=== PATIENT | male | born 1960 | race Caucasian/White ===

== ENCOUNTER 2023-03-23 06:32 | Day surgery (SDC) | payer MEDICAID ==
[~2023-03-23] VITALS: Ht 162.6 cm; Wt 87.6 kg
[2023-03-23] VITALS (9 sets, daily range): BP systolic 111–131; BP diastolic 73–92; PULSE 47–57; RESP 13–18; TEMP 98.2; O2SAT 94–98
[2023-03-23] MEDS ORDERED: diphenhydrAMINE 25mg capsule PO PRN (06:50)
[2023-03-23] MEDS ORDERED: normal saline 1,000 ML IV SCH (06:50)
[2023-03-23 07:23] LABS: ALBUMIN 3.4 G/DL (3.4-5.0); ANION GAP 11 (8-16); BLOOD UREA NITROGEN 25 MG/DL (7-18); BUN/CREATININE RATIO 21.7 (10.0-20.0); CALCIUM 8.5 MG/DL (8.5-10.1); CHLORIDE 108 MMOL/L (99-107); CREATININE 1.15 MG/DL (0.60-1.10); GLUCOSE 116 MG/DL (70-104); SODIUM 142 MMOL/L (135-145); eCRCL 56 ML/MIN; eGFR 64 ML/MIN
[2023-03-23] MEDS ORDERED: CHOL100046 PO (07:24)
[2023-03-23] MEDS ORDERED: GLUT1POW PO (07:24)
[2023-03-23] MEDS ORDERED: ZINC50TA15 PO (07:24)
[2023-03-23] MEDS ORDERED: OMEG100037 PO (07:24)
[2023-03-23] MEDS ORDERED: VITA-268 PO (07:24)
[2023-03-23] MEDS ORDERED: MAGN250C PO (07:24)
[2023-03-23] MEDS ORDERED: ASCO-482 PO (07:24)
[2023-03-23] MEDS ORDERED: UBID300C3 PO (07:24)
[2023-03-23] MEDS ORDERED: ASPI-611 PO (07:24)
[2023-03-23] MEDS ORDERED: MULT-1085 PO (07:24)
[2023-03-23 07:25] LABS: INR 0.9 INR; PROTHROMBIN TIME 10.1 SECONDS (9.0-12.0)
[2023-03-23 07:39] LABS: LYMPHOCYTES # (AUTO) 2.5 X10'3 (1.1-4.8); MEAN CORPUSCULAR VOLUME 92.6 FL (78-98); MONOCYTES # (AUTO) 0.8 X10'3 (0-0.9); PLATELET COUNT 203 X10'3 (140-440)
[2023-03-23 07:41] LABS: BASOPHILS # (AUTO) 0.1 X10'3 (0-0.2); EOSINOPHILS # (AUTO) 0.7 X10'3 (0-0.9); EOSINOPHILS % (AUTO) 9.5 % (0-6); HEMATOCRIT 41.8 % (42.0-52.0); HEMOGLOBIN 14.5 g/dl (14.0-17.9); LYMPHOCYTES % (AUTO) 35.3 % (21-51); MEAN CORPUSCULAR HGB CONC 34.6 g/dL (33.0-36.5); MEAN PLATELET VOLUME 8.3 FL (7.4-10.4); MONOCYTES % (AUTO) 10.6 % (2-12); NEUTROPHILS % (AUTO) 42.6 % (42-75); RED BLOOD COUNT 4.52 X10'6 (4.70-6.10); RED CELL DISTRIBUTION WIDTH 13.1 % (11.5-14.5); WHITE BLOOD COUNT 7.1 X10'3 (4.5-11.0)
[2023-03-23] MEDS ORDERED: heparin 1,000unit/ml 10ml vial 10 ML ONE (08:53)
[2023-03-23] MEDS ORDERED: verapamil 2.5 mg/ml inj IV ONE (08:53)
[2023-03-23] MEDS ORDERED: LIDOcaine 1% (10mg/ml) 2ml vial ONE (08:53)
[2023-03-23] MEDS ORDERED: iohexol 350MG/ML 100ml bottle IV ONE (08:53)
[2023-03-23] MEDS ORDERED: midazolam 1 mg/ML 2ml injection ONE ×2 (08:53→09:33)
[2023-03-23] MEDS ORDERED: fentaNYL/PF 50MCG/1 ML 2ML syringe ONE (08:53)
[2023-03-23] MEDS ORDERED: iohexol 350 MG/ML 50ML vial IV ONE (08:53)
[2023-03-23] MEDS ORDERED: nitroGLYCERIN 500mcg/5mL D5W 0 ML IV ONE (08:54)
[2023-03-23] MEDS ORDERED: LIDOcaine 1% (10mg/ml)w/preservative inj. 20ml MDV ONE (08:57)
[2023-03-23] MEDS ORDERED: HYDROcodone/acetaminophen 5mg/325mg tablet PO PRN (10:35)
[2023-03-23] MEDS ORDERED: HYDROcodone/acetaminophen 10/325mg tab PO PRN (10:35)
[2023-03-23] MEDS ORDERED: normal saline 1000ml 1,000 ML IV SCH (10:35)
[2023-03-23] MEDS ORDERED: ondansetron/PF 4mg/2ml inj IV PRN (10:35)
[2023-03-23] MEDS ORDERED: proCHLORperazine 10 MG/2 ml inj IV PRN (10:35)
== END 2023-03-23 13:30 | disposition home or self-care (01) ==
LOC: SSTAY O 06:32
PROVIDERS: ATTEND Internal Medicine Cardiovascular Disease
DX: I35.0 Nonrheumatic aortic (valve) stenosis (principal); F12.90 Cannabis use, unspecified, uncomplicated; Z98.890 Other specified postprocedural states; Z79.899 Other long term (current) drug therapy; Z85.22 Personal history of malignant neoplasm of nasal cavities, middle ear, and accessory sinuses; Z87.891 Personal history of nicotine dependence; Z72.89 Other problems related to lifestyle
CPT/HCPCS: 36415; 80048; 83735; 85025; 85610; 93005; 93456; 99152; 99153; J1644; J2250; J3010; J3490; J7030; Q0163; Q9967; A6258; C1725; C1751; C1760; C1769; C1894

== ENCOUNTER 2023-04-17 09:52 | Outpatient (CLI) | payer MEDICAID ==
[~2023-04-17 09:52] MED LIST: ASCO-482 PO; ASPI-611 PO; CHOL100046 PO; GLUT1POW PO; MAGN250C PO; MULT-1085 PO; OMEG100037 PO; UBID300C3 PO; VITA-268 PO; ZINC50TA15 PO
[2023-04-17 10:37] LABS: BASOPHILS # (AUTO) 0.1 X10'3 (0-0.2); BASOPHILS % (AUTO) 1.2 % (0-1); EOSINOPHILS # (AUTO) 0.7 X10'3 (0-0.9); EOSINOPHILS % (AUTO) 8.2 % (0-6); HEMATOCRIT 46.2 % (42.0-52.0); HEMOGLOBIN 15.8 g/dl (14.0-17.9); LYMPHOCYTES # (AUTO) 2.1 X10'3 (1.1-4.8); LYMPHOCYTES % (AUTO) 26.2 % (21-51); MEAN CORPUSCULAR HEMOGLOBIN 31.6 PG (27.0-31.0); MEAN CORPUSCULAR HGB CONC 34.2 g/dL (33.0-36.5); MEAN CORPUSCULAR VOLUME 92.4 FL (78-98); MEAN PLATELET VOLUME 8.1 FL (7.4-10.4); MONOCYTES # (AUTO) 0.7 X10'3 (0-0.9); MONOCYTES % (AUTO) 8.4 % (2-12); NEUTROPHILS # (AUTO) 4.5 X10'3 (1.8-7.7); PLATELET COUNT 213 X10'3 (140-440); RED CELL DISTRIBUTION WIDTH 12.9 % (11.5-14.5); WHITE BLOOD COUNT 8.1 X10'3 (4.5-11.0)
[2023-04-17 10:56] LABS: ALANINE AMINOTRANSFERASE 43 U/L (12-78); ALBUMIN 3.8 G/DL (3.4-5.0); ALBUMIN/GLOBULIN RATIO 0.9 (1.1-1.5); ALKALINE PHOSPHATASE 106 IU/L (46-116); ANION GAP 5 (8-16); ASPARTATE AMINO TRANSFERASE 33 U/L (10-37); BILIRUBIN,TOTAL 0.7 MG/DL (0.1-1.0); BLOOD UREA NITROGEN 23 MG/DL (7-18); BUN/CREATININE RATIO 22.1 (10.0-20.0); CALCIUM 9.1 MG/DL (8.5-10.1); CHLORIDE 104 MMOL/L (99-107); CREATININE 1.04 MG/DL (0.60-1.10); GLUCOSE 109 MG/DL (70-104); POTASSIUM 4.1 MMOL/L (3.5-5.1); PRO BRAIN NATRIURETIC PEPTIDE 285 PG/ML (0-125); SODIUM 136 MMOL/L (135-145); TOTAL CARBON DIOXIDE 27.4 MMOL/L (24-32); TOTAL PROTEIN 7.9 G/DL (6.4-8.2); eGFR 72 ML/MIN
[2023-04-17] MEDS ORDERED: IODIXANOL 320 MG/ML INFUS..BTL 100ML IV ONE (11:18)
[2023-04-17 11:20] LABS: APTT 30 SECONDS (22-32)
[2023-04-17 11:27] LABS: INR 0.9 INR
== END 2023-04-17 23:59 | disposition home or self-care (01) ==
LOC: RAD 09:52
PROVIDERS: ATTEND Internal Medicine Cardiovascular Disease
DX: I65.29 Occlusion and stenosis of unspecified carotid artery (principal); I35.0 Nonrheumatic aortic (valve) stenosis; R06.02 Shortness of breath
CPT/HCPCS: 36415; 71046; 71275; 74174; 75572; 80053; 83880; 85025; 85610; 85730; 93880; 94010; 94727; 94729; J3490; Q9967